=== PATIENT | female | born 2000 | race Caucasian/White ===

== ENCOUNTER 2023-02-20 06:20 | Emergency (ER) | payer OTHER, BC ==
[~2023-02-20] VITALS: Ht 175.3 cm; Wt 60.8 kg
[~2023-02-20 06:20] MED LIST: Norethindrone0.35 MG PO; PARO10 PO; Seroquel Xr50 MG PO
== END 2023-02-20 07:58 | disposition home or self-care (01) ==
LOC: ER 06:20
DX: S61.211A Laceration without foreign body of left index finger without damage to nail, initial encounter (principal); Z23 Encounter for immunization; Z88.5 Allergy status to narcotic agent; W26.8XXA Contact with other sharp object(s), not elsewhere classified, initial encounter
CPT/HCPCS: 12001; 90471; 90714; 99282-25

== ENCOUNTER → 2024-07-13 | Outpatient (CLI) | payer BC, OTHER | END | disposition home or self-care (01) | LOC: LAB 16:16 → LAB SHORT 16:16 | DX: N39.0 Urinary tract infection, site not specified (principal) | CPT/HCPCS: 87077; 87086; 87186 ==